=== PATIENT | male | born 1940 | race Caucasian/White ===

== ENCOUNTER 2016-10-10 12:59 | Emergency (ER) | payer OTHER, MEDICARE ==
[~2016-10-10] VITALS: Ht 182.9 cm; Wt 100.0 kg
[2016-10-10 13:04] VITALS: BP 165/107; PULSE 91; RESP 16; TEMP 98.2; O2SAT 98
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
[2016-10-10] MEDS ORDERED: ROBA500T PO (15:12)
[2016-10-10 15:40] VITALS: BP 128/81
== END 2016-10-10 15:43 | disposition home or self-care (01) ==
LOC: NEPD 12:59
DX: S16.1XXA Strain of muscle, fascia and tendon at neck level, initial encounter (principal); S00.511A Abrasion of lip, initial encounter; I67.1 Cerebral aneurysm, nonruptured; V89.2XXA Person injured in unspecified motor-vehicle accident, traffic, initial encounter
CPT/HCPCS: 70450; 71010; 72125

== ENCOUNTER 2016-12-07 15:37 | Observation (INO) | payer OTHER, MEDICARE ==
[~2016-12-07] VITALS: Ht 182.9 cm; Wt 100.0 kg
[~2016-12-07 15:37] MED LIST: ROBA500T PO
[2016-12-07] MEDS ORDERED: IOHEXOL 350 MG/ML 10 ML VIAL (for RAD DIAG) IVCONTRAST ONE (15:38)
[2016-12-07 15:41] VITALS: BP 147/72; PULSE 107; RESP 16; TEMP 98.2; O2SAT 98
--- NOTE | 2016-12-07 15:56 | PD ---
Physical Exam Date Seen by Provider: Dec 07, 2016 Time Seen by Provider: 15:55 Narrative 76 yo male here for evaluation of new onset a. fib. No history of this. Dr Cartwright sent him here for evaluation. Recent surgery and cannot be put on anticoagulation because of it. No pain. Vitals are stable in triage. Awaiting bed placement. Data Data Last Documented VS Vital Signs Date Time Temp Pulse Resp B/P (MAP) Pulse Ox O2 Delivery O2 Flow Rate FiO2 12/07/16 15:41 98.2 107 16 147/72 (97) 98 Orders Orders Electrocardiogram (12/07/16 15:43) Complete Blood Count With Diff (12/07/16 15:43) Basic Metabolic Panel (Bmp) (12/07/16 15:43) Ckmb (Isoenzyme) Profile (12/07/16 15:43) Troponin I (12/07/16 15:43) Chest, Single Ap (12/07/16 15:43) Iv Access Insert/Monitor (12/07/16 15:43) Ecg Monitoring (12/07/16 15:43) Oxygen Administration (12/07/16 15:43) Oximetry (12/07/16 15:43) Prothrombin Time / Inr (Pt) (12/07/16 15:43) MDM Medical Record Reviewed: Yes Supervised Visit with WILL: Reese Weiss Dec 07, 2016 15:56
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
[2016-12-07 16:16] VITALS: BP 160/65; PULSE 94; RESP 18; O2SAT 97
[2016-12-07] MEDS ORDERED: ASPI-110 PO (16:20)
[2016-12-07] MEDS ORDERED: PLAV75TA29 PO (16:20)
[2016-12-07 16:50] LABS: AUTOMATED NEUTROPHIL # 6.8 TH/MM3 (1.8-7.7); BASOPHIL % 0.2 % (0.0-2.0); EOSINOPHIL # 0.2 TH/MM3 (0-0.4); EOSINOPHIL % 1.9 % (0.0-4.0); HEMATOCRIT 44.8 % (39.0-51.0); HEMO FLAGS DIFF FINAL; LYMPH % 29.4 % (9.0-44.0); LYMPHOCYTE # 3.2 TH/MM3 (1.0-4.8); MEAN CELL VOLUME 91.5 FL (80.0-100.0); MEAN CORPUSCULAR HEMOGLOBIN 29.9 PG (27.0-34.0); MEAN CORPUSCULAR HGB CONC 32.6 % (32.0-36.0); MONO % 6.7 % (0.0-8.0); NEUT % 61.8 % (16.0-70.0); PLATELET COUNT 242 TH/MM3 (150-450); WHITE BLOOD COUNT 10.9 TH/MM3 (4.0-11.0)
[2016-12-07 17:00] LABS: PROTHROMBIN TIME - PATIENT 11.1 SEC (9.8-11.6)
[2016-12-07 17:05] LABS: ANION GAP 10 MEQ/L (5-15); BICARBONATE 24.1 MEQ/L (21.0-32.0); BLOOD UREA NITROGEN 26 MG/DL (7-18); CHLORIDE 110 MEQ/L (98-107); GLOMERULAR FILTRATION RATE 54 ML/MIN (>89); POTASSIUM 3.8 MEQ/L (3.5-5.1); SODIUM (NA) 144 MEQ/L (136-145)
[2016-12-07 17:08] LABS: CREATINE KINASE 208 U/L (39-308)
[2016-12-07 17:20] LABS: CKMB 8.4 NG/ML (0.5-3.6)
[2016-12-07 17:41] VITALS: BP 123/86; PULSE 83; RESP 18; O2SAT 98
--- NOTE | 2016-12-07 18:24 | PD ---
HPI Chief Complaint: Cardiac Complaint Time Seen by Provider: 16:14 Travel History International Travel<30 days: No Contact w/Intl Traveler<30days: No Traveled to known affect area: No History of Present Illness HPI This is a 76-year-old male who presents to the emergency department having an episode at home where he felt dizzy and lightheaded and short of breath. He said he took his own blood pressure and it was in the 90s systolic so he went to the [place]. At the [place] he said he was bradycardic in the 40s. He was seen by the [place] physician who noted that the patient is in atrial fibrillation which is new. The patient says that intermittently over the past several weeks he's been increasingly short of breath. He did go see his doctor 2 weeks ago and told him that he had some blood in his sputum and his doctor told him to come to the emergency department at that time he didn't. He denies any leg swelling , fevers or chills. His symptoms, and go and are worse with exertion. 4 weeks ago he had a surgery where there was an attempted coiling a basilar artery aneurysm. He is currently on Plavix and aspirin. [facility] Past Medical History Atrial Fibrillation: Yes (new onset 12/07/16) Cardiovascular Problems: Yes (stents) High Cholesterol: Yes Diminished Hearing: No Neurologic: Yes (brain aneurysm) Past Surgical History Cardiac Surgery: Yes (stents) Other Surgery: Yes (brain aneurysm ) Social History Alcohol Use: No Tobacco Use: No Substance Use: No Allergies-Medications (Allergen,Severity, Reaction): Coded Allergies: No Known Allergies (Unverified , 12/07/16) Reported Meds & Prescriptions Reported Meds & Active Scripts Active Robaxin (Methocarbamol) 500 Mg Tab 500 Mg PO TID PRN Reported Aspirin 81 (Aspirin) 81 Mg Tabdr 81 Mg PO DAILY Plavix (Clopidogrel Bisulfate) 75 Mg Tab 75 Mg PO DAILY Review of Systems Except as stated in HPI: all other systems reviewed are Neg Physical Exam Narrative GENERAL:Well appearing, no acute distress SKIN: Focused skin assessment warm and dry. HEAD: Atraumatic. Normocephalic. EYES: Pupils equal and round. No injection or drainage. ENT: Moist mucous membranes NECK: Trachea midline. CARDIOVASCULAR: Regular rate and rhythm. No murmur appreciated. RESPIRATORY: Clear to auscultation. Breath sounds equal bilaterally. GASTROINTESTINAL: Abdomen soft, non-tender, nondistended. MUSCULOSKELETAL: No obvious deformities. NEUROLOGICAL: Awake and alert. No obvious cranial nerve deficits. Moving all extremities. PSYCHIATRIC: Appropriate mood and affect; insight and judgment normal. Data Data Last Documented VS Vital Signs Date Time Temp Pulse Resp B/P (MAP) Pulse Ox O2 Delivery O2 Flow Rate FiO2 12/07/16 17:41 83 18 123/86 (98) 98 Room Air 12/07/16 15:41 98.2 Orders Orders Electrocardiogram (12/07/16 15:43) Complete Blood Count With Diff (12/07/16 15:43) Basic Metabolic Panel (Bmp) (12/07/16 15:43) Ckmb (Isoenzyme) Profile (12/07/16 15:43) Troponin I (12/07/16 15:43) Iv Access Insert/Monitor (12/07/16 15:43) Ecg Monitoring (12/07/16 15:43) Oxygen Administration (12/07/16 15:43) Oximetry (12/07/16 15:43) Prothrombin Time / Inr (Pt) (12/07/16 15:43) Chest, Pa & Lat (12/07/16 15:43) Ct Pulmonary Angiogram (12/07/16 ) CKMB (12/07/16 16:29) CKMB% (12/07/16 16:29) Act Partial Throm Time (Ptt) (12/07/16 18:18) Labs Laboratory Tests Test 12/07/16 16:29 White Blood Count 10.9 TH/MM3 Red Blood Count 4.90 MIL/MM3 Hemoglobin 14.6 GM/DL Hematocrit 44.8 % Mean Corpuscular Volume 91.5 FL Mean Corpuscular Hemoglobin 29.9 PG Mean Corpuscular Hemoglobin Concent 32.6 % Red Cell Distribution Width 14.0 % Platelet Count 242 TH/MM3 Mean Platelet Volume 8.7 FL Neutrophils (%) (Auto) 61.8 % Lymphocytes (%) (Auto) 29.4 % Monocytes (%) (Auto) 6.7 % Eosinophils (%) (Auto) 1.9 % Basophils (%) (Auto) 0.2 % Neutrophils # (Auto) 6.8 TH/MM3 Lymphocytes # (Auto) 3.2 TH/MM3 Monocytes # (Auto) 0.7 TH/MM3 Eosinophils # (Auto) 0.2 TH/MM3 Basophils # (Auto) 0.0 TH/MM3 CBC Comment DIFF FINAL Differential Comment Prothrombin Time 11.1 SEC Prothromb Time International Ratio 1.0 RATIO Blood Urea Nitrogen 26 MG/DL Creatinine 1.30 MG/DL Random Glucose 97 MG/DL Calcium Level 8.4 MG/DL Sodium Level 144 MEQ/L Potassium Level 3.8 MEQ/L Chloride Level 110 MEQ/L Carbon Dioxide Level 24.1 MEQ/L Anion Gap 10 MEQ/L Estimat Glomerular Filtration Rate 54 ML/MIN Total Creatine Kinase 208 U/L Creatine Kinase MB 8.4 NG/ML Troponin I LESS THAN 0.02 NG/ML MDM Medical Decision Making Medical Screen Exam Complete: Yes Emergency Medical Condition: Yes Interpretation(s) Tachycardic, hypertensive No leukocytosis Electrolytes are reassuring Troponin is normal INR is 1 Chest x-ray: No acute process EKG: Atrial fibrillation, right bundle branch block Differential Diagnosis Atrial fibrillation, dehydration, myocardial infarction, pulmonary embolism Narrative Course This is a 76-year-old male who presents to the emergency department having had some dizziness, lightheadedness and palpitations earlier today. He went to the [place] where he is found to be in atrial fibrillation which is a new diagnosis for him. He did have a recent neurosurgical procedure for weeks ago. He is currently on Plavix and aspirin. His CHADS-VASC score is 3. Patient was placed on a monitor and an IV was established. Labs are obtained which are reassuring. A CT pulmonary angiogram will be obtained as the patient endorse some hemoptysis one week ago, has some exertional dyspnea and had a recent surgical procedure. If the patient's PE study is reassuring I don't think the patient needs to be admitted. His rate has been controlled here in the ER with his atrial fibrillation. The big question is whether or not the patient can receive full anticoagulation. He is at risk for stroke. We plan to discuss with either our neurosurgeon or the patient's neurosurgeon whether or not the patient can be initiated on anticoagulation. If he can I would start him on Xarelto or Eliquis and have him follow-up with cardiology as an outpatient. I think patient is otherwise safe to follow-up with outpatient cardiology. Erin Cantrell MD Dec 07, 2016 18:24
[2016-12-07 19:33] LABS: APTT (PATIENT) 26.7 SEC (24.3-30.1)
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
[2016-12-07 20:30] VITALS: BP 124/75; PULSE 82; RESP 16; O2SAT 99
[2016-12-07 20:31] VITALS: BP 133/89; PULSE 87; RESP 16; O2SAT 97
--- NOTE | 2016-12-07 20:42 | RADRPT ---
EXAM DATE/TIME: 12/07/2016 19:37 [facility] COMPARISON: No previous studies available for comparison. INDICATIONS : Chest pain. IV CONTRAST: 70 cc Omnipaque 350 (iohexol) IV RADIATION DOSE: 23.38 CTDIvol (mGy) MEDICAL HISTORY : Aneurysm, intracranial. Cardiovascular disease SURGICAL HISTORY : Coronary artery stent. Aneurysm coil ENCOUNTER: Initial ACUITY: 1 day PAIN SCALE: 5/10 LOCATION: Bilateral chest TECHNIQUE: Volumetric scanning of the chest was performed using a pulmonary embolism protocol MIP images were re constructed. Using automated exposure control and adjustment of the mA and/or kV according to patien t size, radiation dose was kept as low as reasonably achievable to obtain optimal diagnostic quality images. DICOM format image data is available electronically for review and comparison. Follow-up recommendations for detected pulmonary nodules are based at a minimum on nodule size and pa tient risk factors according to Fleischner Society Guidelines. FINDINGS: No pulmonary embolus is seen. There is emphysematous change seen in the upper lungs. Calcifications are seen in the right hilum an d right tracheal bronchial region and subcarinal regions presumably from prior granulomatous exposure . There is a calcified granuloma in the medial right lower lobe. Calcified granulomas are seen in th e liver. There is a 2.3 cm hepatic mass seen at the superior lateral aspect of the right lobe of the liver. This is nonspecific. There are scattered normal sized lymph nodes seen throughout the mediastinum. Pathological enlarged adenopathy is not appreciated. Coronary artery calcifications are present. CONCLUSION: 1. No pulmonary embolus. 2. Emphysematous change in the upper lungs. 3. Evidence of prior granulomatous exposure. 4. Coronary artery calcifications. 5. Nonspecific 2.4 cm low density seen in the liver. This could be further evaluated with a CT or MR I examination of the abdomen. This could certainly be performed as an outpatient. Baldo Laughlin MD on December 07, 2016 at 20:18 Board Certified Radiologist. This report was verified electronically.
[2016-12-07] MEDS ORDERED: NALOXONE HCL 0.4 MG/ML AMP IV PRN (21:45)
[2016-12-07] MEDS ORDERED: SODIUM CHLORIDE 0.9% FLUSH 10 ML FLUSH IV FLUSH PRN (21:45)
[2016-12-07] MEDS: ENOXAPARIN SODIUM 100 MG/ML SYRINGE SQ SCH (22:12)
--- NOTE | 2016-12-07 22:13 | PD ---
Data Data Last Documented VS Vital Signs Date Time Temp Pulse Resp B/P (MAP) Pulse Ox O2 Delivery O2 Flow Rate FiO2 12/07/16 20:31 87 16 133/89 (104) 97 Room Air 12/07/16 15:41 98.2 Orders Orders Electrocardiogram (12/07/16 15:43) Complete Blood Count With Diff (12/07/16 15:43) Basic Metabolic Panel (Bmp) (12/07/16 15:43) Ckmb (Isoenzyme) Profile (12/07/16 15:43) Troponin I (12/07/16 15:43) Iv Access Insert/Monitor (12/07/16 15:43) Ecg Monitoring (12/07/16 15:43) Oxygen Administration (12/07/16 15:43) Oximetry (12/07/16 15:43) Prothrombin Time / Inr (Pt) (12/07/16 15:43) Chest, Pa & Lat (12/07/16 15:43) Ct Pulmonary Angiogram (12/07/16 ) CKMB (12/07/16 16:29) CKMB% (12/07/16 16:29) Act Partial Throm Time (Ptt) (12/07/16 18:18) Ct Brain W/O Iv Contrast(Rout) (12/07/16 ) Iohexol 350 Inj (Omnipaque 350 Inj) (12/07/16 15:38) Admit Order (Ed Use Only) (12/07/16 21:22) Labs Laboratory Tests Test 12/07/16 16:29 White Blood Count 10.9 TH/MM3 Red Blood Count 4.90 MIL/MM3 Hemoglobin 14.6 GM/DL Hematocrit 44.8 % Mean Corpuscular Volume 91.5 FL Mean Corpuscular Hemoglobin 29.9 PG Mean Corpuscular Hemoglobin Concent 32.6 % Red Cell Distribution Width 14.0 % Platelet Count 242 TH/MM3 Mean Platelet Volume 8.7 FL Neutrophils (%) (Auto) 61.8 % Lymphocytes (%) (Auto) 29.4 % Monocytes (%) (Auto) 6.7 % Eosinophils (%) (Auto) 1.9 % Basophils (%) (Auto) 0.2 % Neutrophils # (Auto) 6.8 TH/MM3 Lymphocytes # (Auto) 3.2 TH/MM3 Monocytes # (Auto) 0.7 TH/MM3 Eosinophils # (Auto) 0.2 TH/MM3 Basophils # (Auto) 0.0 TH/MM3 CBC Comment DIFF FINAL Differential Comment Prothrombin Time 11.1 SEC Prothromb Time International Ratio 1.0 RATIO Activated Partial Thromboplast Time 26.7 SEC Blood Urea Nitrogen 26 MG/DL Creatinine 1.30 MG/DL Random Glucose 97 MG/DL Calcium Level 8.4 MG/DL Sodium Level 144 MEQ/L Potassium Level 3.8 MEQ/L Chloride Level 110 MEQ/L Carbon Dioxide Level 24.1 MEQ/L Anion Gap 10 MEQ/L Estimat Glomerular Filtration Rate 54 ML/MIN Total Creatine Kinase 208 U/L Creatine Kinase MB 8.4 NG/ML Troponin I LESS THAN 0.02 NG/ML MDM Supervised Visit with WILL: No Narrative Course This case is checked out to me by Dr. Chairez at 7 PM. I have reviewed the entirety of the workup and discussed with the patient and answered his questions She had recommended hospitalization to get anticoagulated on Coumadin [facility] Patient's brain CT shows no acute bleeding His CT pulmonary and again is negative for PE I discussed with hospitalist Dr. Arredondo. She recommended 23 hour observation and will initiate Lovenox and Coumadin Diagnosis Primary Impression: New onset a-fib Admitting Information Admitting Physician Requests: Observation Flaco Adam MD Dec 07, 2016 22:13
[2016-12-07 22:14] VITALS: BP 121/69; PULSE 97; RESP 16; O2SAT 97
[2016-12-07 23:16] LABS: CREATINE KINASE 169 U/L (39-308)
[2016-12-08] VITALS (9 sets, daily range): BP systolic 116–134; BP diastolic 66–83; PULSE 70–87; RESP 14–20; TEMP 98–99.6; O2SAT 93–97
--- NOTE | 2016-12-08 02:31 | HHI.HP ---
[facility] Primary [facility] Physician [facility] Admission Diagnosis new onset Afib requiring heparin/coumadin Diagnoses: Chief Complaint: fatigue and irregular heart beat Travel History International Travel<30 Days: No Contact w/Intl Traveler <30 Da: No Traveled to Known Affected Are: No History of Present Illness Written by BRETT Forte acting as scribe for [Arnulfo] on 12/08/16 at 02: 17. 76 y/o male with a history of CAD with stent placement presented to the ED with complaints of low blood pressure. He states at home he was feeling weak and light headed for the last month, he checked his BP at home and it was 90/60. He went to the [place] and was found to be in afib and his DrTammy sent him to the ED for evaluation. One month ago he had an aneurysm coiling completed and was on hypertensive meds 2 years ago but none since. He denies any chest pain, palpitations,sob, fever or chills. After his surgery he did have black stools, but it went away on its own with no intervention. 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 Cardiac stents Cholecystectomy Reported Medications Reported Meds & Active Scripts Active Robaxin (Methocarbamol) 500 Mg Tab 500 Mg PO TID PRN Reported Aspirin 81 (Aspirin) 81 Mg Tabdr 81 Mg PO DAILY Plavix (Clopidogrel Bisulfate) 75 Mg Tab 75 Mg PO DAILY Allergies: Coded Allergies: No Known Allergies (Unverified , 12/07/16) Active Ordered Medications Current Medications Medications (Trade) Dose Ordered Sig/Andrea Route Start Time Stop Time Status Last Admin (NS Flush) 2 ml UNSCH PRN IV FLUSH 12/07/16 21:45 (NS Flush) 2 ml BID IV FLUSH 12/08/16 09:00 (Narcan Inj) 0.4 mg UNSCH PRN IV 12/07/16 21:45 (Lovenox Inj) 100 mg Q12H SQ 12/07/16 22:00 12/07/16 22:12 (Coumadin) 5 mg DAILY@1600 PO 12/08/16 16:00 Family History Brother: Lung Cancer Dad: Black lung, at 76 Social History Tobacco use: Denies Alcohol use: Quit years ago Illicit drug use: Denies Physical Exam Vital Signs Vital Signs Date Time Temp Pulse Resp B/P (MAP) Pulse Ox O2 Delivery O2 Flow Rate FiO2 12/08/16 01:36 98.1 84 18 121/76 (91) 96 12/08/16 01:04 12/08/16 00:56 83 14 116/73 (87) Room Air 12/07/16 22:14 97 16 121/69 (86) 97 Room Air 12/07/16 20:31 87 16 133/89 (104) 97 Room Air 12/07/16 17:41 83 18 123/86 (98) 98 Room Air 12/07/16 16:16 94 18 160/65 (96) 97 Room Air 12/07/16 16:16 97 Room Air 12/07/16 16:16 97 Room Air 12/07/16 15:41 98.2 107 16 147/72 (97) 98 Physical Exam GENERAL: This is a well-nourished, well-developed patient, in no apparent distress. SKIN: No rashes, ecchymoses or lesions. Cool and dry. HEAD: Atraumatic. Normocephalic. EYES: Pupils equal round and reactive. ENT: Nose without bleeding, purulent drainage or septal hematoma. Airway patent. NECK: Trachea midline. No JVD or lymphadenopathy. CARDIOVASCULAR: Regular rate and irregular rhythm without murmurs, gallops, or rubs. RESPIRATORY: Clear to auscultation. Breath sounds equal bilaterally. No wheezes , rales, or rhonchi. GASTROINTESTINAL: Abdomen soft, non-tender, nondistended. MUSCULOSKELETAL: Extremities without clubbing, cyanosis, or edema. No joint tenderness, effusion, or edema noted. No calf tenderness. NEUROLOGICAL: Awake and alert. Motor and sensory grossly within normal limits. Normal speech. Laboratory Laboratory Tests Test 12/07/16 16:29 12/07/16 22:30 White Blood Count 10.9 Red Blood Count 4.90 Hemoglobin 14.6 Hematocrit 44.8 Mean Corpuscular Volume 91.5 Mean Corpuscular Hemoglobin 29.9 Mean Corpuscular Hemoglobin Concent 32.6 Red Cell Distribution Width 14.0 Platelet Count 242 Mean Platelet Volume 8.7 Neutrophils (%) (Auto) 61.8 Lymphocytes (%) (Auto) 29.4 Monocytes (%) (Auto) 6.7 Eosinophils (%) (Auto) 1.9 Basophils (%) (Auto) 0.2 Neutrophils # (Auto) 6.8 Lymphocytes # (Auto) 3.2 Monocytes # (Auto) 0.7 Eosinophils # (Auto) 0.2 Basophils # (Auto) 0.0 CBC Comment DIFF FINAL Differential Comment Prothrombin Time 11.1 Prothromb Time International Ratio 1.0 Activated Partial Thromboplast Time 26.7 Blood Urea Nitrogen 26 Creatinine 1.30 Random Glucose 97 Calcium Level 8.4 Sodium Level 144 Potassium Level 3.8 Chloride Level 110 Carbon Dioxide Level 24.1 Anion Gap 10 Estimat Glomerular Filtration Rate 54 Total Creatine Kinase 208 169 Creatine Kinase MB 8.4 Troponin I LESS THAN 0.02 LESS THAN 0.02 Result Diagram: 12/07/16 1629 12/07/16 1629 Imaging Last Impressions Chest X-Ray 12/07/16 1543 Signed Impressions: Service Date/Time: Wednesday, December 07, 2016 15:58 - CONCLUSION: No acute disease. Harry Hickey Jr., MD Head CT 12/07/16 0000 Signed Impressions: Service Date/Time: Wednesday, December 07, 2016 19:33 - CONCLUSION: 1. 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 2. An acute abnormality is not clearly seen. There is streak artifact from the coils. 3. Left maxillary and sphenoid sinus disease. Baldo Laughlin MD CT Angiography 12/07/16 0000 Signed Impressions: Service Date/Time: Wednesday, December 07, 2016 19:37 - CONCLUSION: 1. No pulmonary embolus. 2. Emphysematous change in the upper lungs. 3. Evidence of prior granulomatous exposure. 4. Coronary artery calcifications. 5. Nonspecific 2.4 cm low density seen in the liver. This could be further evaluated with a CT or MRI examination of the abdomen. This could certainly be performed as an outpatient. Baldo Laughlin MD [place] VTE Risk Assessment Caprini VTE Risk Assessment: Mod/High Risk (score >= 2) Caprini Risk Assessment Model Point Value = 1 Point Value = 2 Point Value = 3 Point Value = 5 Age 41-60 Minor surgery BMI > 25 kg/m2 Swollen legs Varicose veins or History of unexplained or recurrent spontaneous Oral contraceptives or hormone replacement Sepsis (< 1 month) Serious lung disease, including pneumonia (< 1 month) Abnormal pulmonary function Acute myocardial infarction Congestive heart failure (< 1 month) History of inflammatory bowel disease Medical patient at bed rest Age 61-74 Arthroscopic surgery Major open surgery (> 45 min) Laparoscopic surgery (> 45 min) Malignancy Confined to bed (> 72 hours) Immobilizing plaster cast Central venous access Age >= 75 History of VTE Family history of VTE Factor V Leiden Prothrombin [id number] Lupus anticoagulant Anticardiolipin antibodies Elevated serum homocysteine Heparin-induced thrombocytopenia Other congenital or acquired thrombophilia Stroke (< 1 month) Elective arthroplasty Hip, pelvis, or leg fracture Acute spinal cord injury (< 1 month) Prophylaxis Regimen Total Risk Factor Score Risk Level Prophylaxis Regimen 0-1 Low Early ambulation 2 Moderate Order ONE of the following: *Sequential Compression Device (SCD) *Heparin 5000 units SQ BID 3-4 Higher Order ONE of the following medications: *Heparin 5000 units SQ TID *Enoxaparin/Lovenox 40 mg SQ daily (WT < 150 kg, CrCl > 30 mL/min) *Enoxaparin/Lovenox 30 mg SQ daily (WT < 150 kg, CrCl > 10-29 mL/min) *Enoxaparin/Lovenox 30 mg SQ BID (WT < 150 kg, CrCl > 30 mL/min) AND/OR *Sequential Compression Device (SCD) 5 or more Highest Order ONE of the following medications: *Heparin 5000 units SQ TID (Preferred with Epidurals) *Enoxaparin/Lovenox 40 mg SQ daily (WT < 150 kg, CrCl > 30 mL/min) *Enoxaparin/Lovenox 30 mg SQ daily (WT < 150 kg, CrCl > 10-29 mL/min) *Enoxaparin/Lovenox 30 mg SQ BID (WT < 150 kg, CrCl > 30 mL/min) AND *Sequential Compression Device (SCD) Assessment and Plan Problem List: (1) New onset a-fib ICD Code: I48.91 - Unspecified atrial fibrillation Status: Acute (2) Brain aneurysm ICD Code: I67.1 - Cerebral aneurysm, nonruptured Status: Chronic Assessment and Plan 76 y/o male with a history of CAD with stent placement presented to the ED with complaints of low blood pressure. New onset afib EKG reviewed and shows afib, troponin .02 -Start Coumadin and Lovenox bridge -2D echo -INR in AM -Serial troponin and EKGs Brain aneurysm, chronic Head CT reviewed and shows aneurysm coiling and no acute hemorrhage -Neurosurgeon was called by ED doctor and he agreed with starting anticoagulation -Patient will continue to follow out patient with his neurosurgeon at the [place] DVT prophylaxis: Lovenox This note was transcribed by fermín [Lizet Malcolm]. I, Dr. Mendez Arredondo personally performed the history, physical exam, and medical decision making; and confirmed the accuracy of the information in the transcribed note. Authenticated by Dr. Mendez Arredondo on 12/08/16 at 02:17. Discussed Condition With Patient and ED physician Lizet Malcolm Dec 08, 2016 02:31 Mendez Arredondo MD Dec 08, 2016 07:17
[2016-12-08 05:45] LABS: ANION GAP 8 MEQ/L (5-15); BICARBONATE 24.9 MEQ/L (21.0-32.0); BLOOD UREA NITROGEN 23 MG/DL (7-18); CHLORIDE 110 MEQ/L (98-107); GLOMERULAR FILTRATION RATE 68 ML/MIN (>89); POTASSIUM 3.8 MEQ/L (3.5-5.1); SODIUM (NA) 143 MEQ/L (136-145)
[2016-12-08 05:50] LABS: CREATINE KINASE 140 U/L (39-308)
[2016-12-08 08:25] LABS: BASOPHIL % 0.3 % (0.0-2.0); EOSINOPHIL # 0.1 TH/MM3 (0-0.4); HEMO FLAGS DIFF FINAL; LYMPH % 34.3 % (9.0-44.0); LYMPHOCYTE # 2.5 TH/MM3 (1.0-4.8); MEAN CORPUSCULAR HEMOGLOBIN 30.3 PG (27.0-34.0); MEAN CORPUSCULAR HGB CONC 33.4 % (32.0-36.0); MONO % 7.3 % (0.0-8.0); NEUT % 56.1 % (16.0-70.0); PLATELET COUNT 170 TH/MM3 (150-450); RED BLOOD COUNT 3.85 MIL/MM3 (4.50-5.90); WHITE BLOOD COUNT 7.2 TH/MM3 (4.0-11.0)
[2016-12-08] MEDS: SODIUM CHLORIDE 0.9% FLUSH 10 ML FLUSH IV FLUSH SCH ×2 (09:17→20:22)
[2016-12-08] MEDS: ENOXAPARIN SODIUM 100 MG/ML SYRINGE SQ SCH ×2 (10:41→20:23)
--- NOTE | 2016-12-08 11:48 | HHI.PR ---
Subjective Remarks Follow-up for new onset atrial fibrillation. Patient had recent aneurysm coiling at in [facility]. He states that for the past 2 or 3 weeks he's been having episodes of extreme fatigue. These episodes are worse with exertion. He denies any chest pain, palpitations, or shortness of breath. He did have a coronary stent placed 7 years ago, and states that his only symptoms prior to that was fatigue. He doesn't recall having a stress test specifically, but does think he might have had cardiac testing done before his aneurysm coil. He states that yesterday he was feeling fatigued and checked his blood pressure and it was 90/64. He went to the [place] and they checked his blood pressure and states that his heart rate was 55 on the automatic blood pressure machine. He did not have a manual heart rate checked.. He does not follow with a roustabout head. The patient has been feeling well today with no symptoms. Telemetry today showed episodes of A. fib with RVR. Objective Vitals Vital Signs Date Time Temp Pulse Resp B/P (MAP) Pulse Ox O2 Delivery O2 Flow Rate FiO2 12/08/16 11:03 98.0 76 16 127/81 (96) 96 12/08/16 08:18 98.1 78 18 134/69 (90) 97 12/08/16 03:23 98.6 70 18 128/83 (98) 93 12/08/16 01:36 98.1 84 18 121/76 (91) 96 12/08/16 01:04 12/08/16 00:56 83 14 116/73 (87) Room Air 12/07/16 22:14 97 16 121/69 (86) 97 Room Air 12/07/16 20:31 87 16 133/89 (104) 97 Room Air 12/07/16 17:41 83 18 123/86 (98) 98 Room Air 12/07/16 16:16 94 18 160/65 (96) 97 Room Air 12/07/16 16:16 97 Room Air 12/07/16 16:16 97 Room Air 12/07/16 15:41 98.2 107 16 147/72 (97) 98 Result Diagram: 12/08/16 0735 12/08/16 0500 Imaging Last Impressions Chest X-Ray 12/07/16 8224 Signed Impressions: Service Date/Time: Wednesday, December 07, 2016 15:58 - CONCLUSION: No acute disease. Harry Hickey Jr., MD Head CT 12/07/16 0000 Signed Impressions: Service Date/Time: Wednesday, December 07, 2016 19:33 - CONCLUSION: 1. 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 2. An acute abnormality is not clearly seen. There is streak artifact from the coils. 3. Left maxillary and sphenoid sinus disease. Baldo Laughlin MD CT Angiography 12/07/16 0000 Signed Impressions: Service Date/Time: Wednesday, December 07, 2016 19:37 - CONCLUSION: 1. No pulmonary embolus. 2. Emphysematous change in the upper lungs. 3. Evidence of prior granulomatous exposure. 4. Coronary artery calcifications. 5. Nonspecific 2.4 cm low density seen in the liver. This could be further evaluated with a CT or MRI examination of the abdomen. This could certainly be performed as an outpatient. Baldo Laughlin MD Objective Remarks GENERAL: Well-developed well-nourished. In no acute distress. SKIN: Warm and dry. No lesions noted. HEENT: Normocephalic. Pupils equal and round. Mucous membranes pink and moist. CARDIOVASCULAR: Irregular rate and rhythm. No murmur appreciated. RESPIRATORY: No accessory muscle use. Clear to auscultation. Breath sounds equal bilaterally. GASTROINTESTINAL: Abdomen soft, non-tender, nondistended. Bowel sounds x4. MUSCULOSKELETAL: No obvious deformities. No clubbing or cyanosis. No edema. NEUROLOGICAL: Awake and alert. No focal neurological deficits. Moves upper and lower extremities spontaneously. Normal speech. PSYCHIATRIC: Appropriate mood and affect; insight and judgment normal. A/P Problem List: (1) New onset a-fib ICD Code: I48.91 - Unspecified atrial fibrillation Status: Acute (2) Brain aneurysm ICD Code: I67.1 - Cerebral aneurysm, nonruptured Status: Chronic Assessment and Plan 76 y/o male with a history of CAD with stent placement presented to the ED with complaints of low blood pressure. New onset afib: CHADSVASC 3 due to age and hypertension. Reviewed: EKG shows afib with rate in 80s. Troponin 0.023. TSH within normal limits. Telemetry monitoring shows episodes of A. fib with RVR rate up to 160s today, currently controlled. Pulmonary angiogram with no PE. -Start Coumadin and Lovenox bridge. Hold aspirin and Plavix. -2D echo -INR in AM -Start metoprolol for rate control -Consult cardiology -Obtain records of possible recent cardiac workup Brain aneurysm, chronic Head CT reviewed and shows aneurysm coiling and no acute hemorrhage -ED physician discussed patient's case with patient's neurosurgeon who recommended starting on Coumadin in case it needs to be reversed -Patient will continue to follow out patient with his neurosurgeon at the [place] Liver nodule: Incidentally seen on chest CT. -Recommendation for outpatient MRI DVT prophylaxis: Lovenox/Coumadin Discharge Planning Monitor on telemetry. Follow up cardiology recommendations. Gutierrez He Dec 08, 2016 11:48
[2016-12-08] MEDS: METOPROLOL TARTRATE 25 MG TAB PO SCH ×2 (13:14→20:22)
[2016-12-08] MEDS ORDERED: WARFARIN SOD 5 MG TAB PO SCH (16:00)
--- NOTE | 2016-12-08 16:22 | ECHRPT ---
Indication: ATRIAL FIB/FLUTTER CONCLUSIONS Normal left ventricular size. Mild concentric left ventricular hypertrophy. The left ventricular systolic function is normal with an estimated ejection fraction in the range of 55-60%. This study was not technically sufficient to allow for evaluation of left ventricular diastolic func tion. The interatrial septum not well visualized. The aortic root and proximal ascending aorta are not well visualized. Trace mitral valve regurgitation. No aortic valve regurgitation. No aortic valve stenosis. There is trace tricuspid valve regurgitation. Normal estimated pulmonary pressures. The pulmonary valve is not well visualized. The inferior vena cava (IVC) is normal in size. There is greater than 50% respiratory change in dimension of the inferior vena cava (normal). BP: 128 / 83 HR: 126 Rhythm: Atrial fibrillation, Atrial flut ter MEASUREMENTS (Male / Female) Normal Values Technical Quality:Poor 2D ECHO LV Diastolic Diameter PLAX 5.3 cm 4.2 - 5.9 / 3.9 - 5.3 cm LV Systolic Diameter PLAX 4.0 cm IVS Diastolic Thickness 1.2 cm 0.6 - 1.0 / 0.6 - 0.9 cm LVPW Diastolic Thickness 1.2 cm 0.6 - 1.0 / 0.6 - 0.9 cm LV Relative Wall Thickness 0.4 LVOT Diameter 2.3 cm Aortic Root Diameter 3.8 cm LA Systolic Diameter LX 3.7 cm 3.0 - 4.0 / 2.7 - 3.8 cm M-MODE AV Cusp Separation MM 1.9 cm DOPPLER AV Peak Velocity 97.6 cm/s AV Peak Gradient 3.8 mmHg AV Mean Gradient 2.3 mmHg AV Velocity Time Integral 14.4 cm LVOT Peak Velocity 60.5 cm/s LVOT Peak Gradient 1.5 mmHg LVOT Velocity Time Integral 8.2 cm LVOT Cardiac Index 1890.7 cm/minm AV Area Cont Eq vti 2.4 cm AV Area Cont Eq pk 2.6 cm Mitral E Point Velocity 66.9 cm/s LV E' Lateral Velocity 15.0 cm/s Mitral E to LV E' Lateral Ratio 4.5 LV E' Septal Velocity 8.3 cm/s Mitral E to LV E' Septal Ratio 8.0 TR Peak Velocity 270.0 cm/s TR Peak Gradient 29.2 mmHg PV Peak Velocity 79.7 cm/s PV Peak Gradient 2.5 mmHg FINDINGS LEFT VENTRICLE Normal left ventricular size. Mild concentric left ventricular hypertrophy. The left ventricular systolic function is normal with an estimated ejection fraction in the range of 55-60%. This study was not technically sufficient to allow for evaluation of left ventricular diastolic func tion. RIGHT VENTRICLE Normal right ventricular size and systolic function. LEFT ATRIUM The left atrial size is normal. RIGHT ATRIUM The right atrial size is normal. ATRIAL SEPTUM The interatrial septum not well visualized. AORTA The aortic root and proximal ascending aorta are not well visualized. MITRAL VALVE Structurally normal mitral valve. Trace mitral valve regurgitation. AORTIC VALVE No aortic valve regurgitation. Trileaflet aortic valve. No aortic valve stenosis. TRICUSPID VALVE Structurally normal tricuspid valve. There is trace tricuspid valve regurgitation. Normal estimated pulmonary pressures. PULMONARY VALVE The pulmonary valve is not well visualized. VESSELS The inferior vena cava (IVC) is normal in size. There is greater than 50% respiratory change in dimension of the inferior vena cava (normal). PERICARDIUM No pericardial effusion. Last Chowdhury MD, FACC (Electronically Signed) Final Date:08 December 2016 16:21
--- NOTE | 2016-12-08 17:39 | EKG ---
Date Performed: 12/07/2016 Time Performed: 15:47:50 PTAGE: 76 years EKG: ATRIAL FIBRILLATION INDETERMINATE AXIS RIGHT BUNDLE BRANCH BLOCK ABNORMAL ECG NO PREVIOUS TRACING DOCTOR: Michael Lockhart Interpretating Date/Time 12/08/2016 17:35:36
--- NOTE | 2016-12-08 17:48 | EKG ---
Date Performed: 12/07/2016 Time Performed: 22:40:21 PTAGE: 76 years EKG: ATRIAL FIBRILLATION MARKED LEFT AXIS DEVIATION RIGHT BUNDLE BRANCH BLOCK ABNORMAL ECG Magnus red to prior tracing no significant change PREVIOUS TRACING : 12/07/2016 15.47 DOCTOR: Michael Lockhart Interpretating Date/Time 12/12/2016 13:54:11
--- NOTE | 2016-12-08 18:05 | EKG ---
Date Performed: 12/08/2016 Time Performed: 05:28:40 PTAGE: 76 years EKG: ATRIAL FIBRILLATION MARKED LEFT AXIS DEVIATION RIGHT BUNDLE BRANCH BLOCK ABNORMAL ECG Magnus red to prior tracing no significant change PREVIOUS TRACING : 12/07/2016 10.40.21 DOCTOR: Michael Lockhart Interpretating Date/Time 12/08/2016 18:04:04
[2016-12-09] VITALS (7 sets, daily range): BP systolic 120–151; BP diastolic 69–99; PULSE 58–78; RESP 16–18; TEMP 97.6–98.6; O2SAT 94–97
--- NOTE | 2016-12-09 08:27 | HHI.PR ---
Subjective Remarks Follow-up for new-onset atrial fibrillation. The patient states that he feels much better today. He denies any further fatigue. No chest pain or shortness of breath. We have not yet obtained the records of possible recent cardiac testing. The patient is agreeable to proceed with stress testing. Heart rate is better controlled. He states his feels comfortable giving him Lovenox shots at home. Objective Vitals Vital Signs Date Time Temp Pulse Resp B/P (MAP) Pulse Ox O2 Delivery O2 Flow Rate FiO2 12/09/16 04:57 97.9 68 17 130/99 (109) 97 12/09/16 04:00 66 12/09/16 00:17 98.6 75 16 120/69 (86) 97 12/09/16 00:01 78 12/08/16 21:19 99.6 87 20 134/66 (88) 96 12/08/16 20:01 78 12/08/16 15:22 98.0 78 16 124/80 (95) 96 12/08/16 12:12 85 12/08/16 11:03 98.0 76 16 127/81 (96) 96 Result Diagram: 12/08/16 0735 12/08/16 0500 Imaging Last Impressions Chest X-Ray 12/07/16 1543 Signed Impressions: Service Date/Time: Wednesday, December 07, 2016 15:58 - CONCLUSION: No acute disease. Harry Hickey Jr., MD Head CT 12/07/16 0000 Signed Impressions: Service Date/Time: Wednesday, December 07, 2016 19:33 - CONCLUSION: 1. 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 2. An acute abnormality is not clearly seen. There is streak artifact from the coils. 3. Left maxillary and sphenoid sinus disease. Baldo Laughlin MD CT Angiography 12/07/16 0000 Signed Impressions: Service Date/Time: Wednesday, December 07, 2016 19:37 - CONCLUSION: 1. No pulmonary embolus. 2. Emphysematous change in the upper lungs. 3. Evidence of prior granulomatous exposure. 4. Coronary artery calcifications. 5. Nonspecific 2.4 cm low density seen in the liver. This could be further evaluated with a CT or MRI examination of the abdomen. This could certainly be performed as an outpatient. Baldo Laughlin MD Objective Remarks GENERAL: Well-developed well-nourished. In no acute distress. SKIN: Warm and dry. No lesions noted. HEENT: Normocephalic. Pupils equal and round. Mucous membranes pink and moist. CARDIOVASCULAR: Irregular rate and rhythm. No murmur appreciated. RESPIRATORY: No accessory muscle use. Clear to auscultation. Breath sounds equal bilaterally. GASTROINTESTINAL: Abdomen soft, non-tender, nondistended. Bowel sounds x4. MUSCULOSKELETAL: No obvious deformities. No clubbing or cyanosis. No edema. NEUROLOGICAL: Awake and alert. No focal neurological deficits. Moves upper and lower extremities spontaneously. Normal speech. PSYCHIATRIC: Appropriate mood and affect; insight and judgment normal. A/P Problem List: (1) New onset a-fib ICD Code: I48.91 - Unspecified atrial fibrillation Status: Acute (2) Brain aneurysm ICD Code: I67.1 - Cerebral aneurysm, nonruptured Status: Chronic Assessment and Plan 76 y/o male with a history of CAD with stent placement presented to the ED with complaints of low blood pressure. New onset afib: CHADSVASC 3 due to age and hypertension. Reviewed: EKG shows afib with rate in 80s. Troponin 0.023. TSH within normal limits. Telemetry monitoring shows no further RVR overnight after starting metoprolol. Pulmonary angiogram with no PE. Echocardiogram essentially within normal limits. -Started Coumadin and Lovenox bridge. Hold aspirin and Plavix. Monitor INR. His management consult for [facility] for INR monitoring and Lovenox administration. -Started metoprolol for rate control -Consulted cardiology, will proceed with ischemic workup Brain aneurysm, chronic Head CT reviewed and shows aneurysm coiling and no acute hemorrhage -ED physician discussed patient's case with patient's neurosurgeon who recommended starting on Coumadin in case it needs to be reversed -Patient will continue to follow out patient with his neurosurgeon at the [place] Liver nodule: Incidentally seen on chest CT, results discussed with patient. -Recommendation for outpatient MRI DVT prophylaxis: Lovenox/Coumadin Discharge Planning Follow-up results of stress testing today and cardiology recommendations. 1530 stress test was unable to exclude "small size mild severity" ischemic defect in the apex. Discussed results with cardiology, Dr. Chowdhury, patient cleared for discharge and outpatient follow-up. Case management has arranged [facility] for continued INR monitoring and Lovenox administration. Discharge home today for outpatient PCP and cardiology follow-up. Gutierrez He Dec 09, 2016 08:27
--- NOTE | 2016-12-09 08:34 | PD.CARD.PN ---
Subjective Subjective Remarks no events Objective Medications Active Medications Metoprolol Tartrate (Lopressor) 25 mg Q12HR PO Last administered on 12/08/16 20 :22; Admin Dose 25 MG; Start 12/08/16 at 14:00 Sodium Chloride (NS Flush) 2 ml BID IV FLUSH Last administered on 12/08/16 20: 22; Admin Dose 2 ML; Start 12/08/16 at 09:00 Warfarin Sodium (Coumadin) 5 mg DAILY@1600 PO Last administered on 12/08/16 16: 54; Admin Dose 5 MG; Start 12/08/16 at 16:00 Vital Signs / I&O Vital Signs Date Time Temp Pulse Resp B/P (MAP) Pulse Ox O2 Delivery O2 Flow Rate FiO2 12/09/16 04:57 97.9 68 17 130/99 (109) 97 12/09/16 04:00 66 12/09/16 00:17 98.6 75 16 120/69 (86) 97 12/09/16 00:01 78 12/08/16 21:19 99.6 87 20 134/66 (88) 96 12/08/16 20:01 78 12/08/16 15:22 98.0 78 16 124/80 (95) 96 12/08/16 12:12 85 12/08/16 11:03 98.0 76 16 127/81 (96) 96 Physical Exam GENERAL: SKIN: Warm and dry. HEAD: Normocephalic. EYES: No scleral icterus. No injection or drainage. NECK: Supple, trachea midline. No JVD or lymphadenopathy. CARDIOVASCULAR: IR IR RESPIRATORY: Breath sounds equal bilaterally. No accessory muscle use. GASTROINTESTINAL: Abdomen soft, non-tender, nondistended. MUSCULOSKELETAL: No cyanosis, or edema. BACK: Nontender without obvious deformity. No CVA tenderness. Laboratory Last Impressions Chest X-Ray 12/07/16 1543 Signed Impressions: Service Date/Time: Wednesday, December 07, 2016 15:58 - CONCLUSION: No acute disease. Harry Hickey Jr., MD Head CT 12/07/16 0000 Signed Impressions: Service Date/Time: Wednesday, December 07, 2016 19:33 - CONCLUSION: 1. 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 2. An acute abnormality is not clearly seen. There is streak artifact from the coils. 3. Left maxillary and sphenoid sinus disease. Baldo Laughlin MD CT Angiography 12/07/16 0000 Signed Impressions: Service Date/Time: Wednesday, December 07, 2016 19:37 - CONCLUSION: 1. No pulmonary embolus. 2. Emphysematous change in the upper lungs. 3. Evidence of prior granulomatous exposure. 4. Coronary artery calcifications. 5. Nonspecific 2.4 cm low density seen in the liver. This could be further evaluated with a CT or MRI examination of the abdomen. This could certainly be performed as an outpatient. Baldo Laughlin MD Assessment and Plan Assessment and Plan afib- rate control. anticoagulation. stress test this am. if negative DC home FU PCP Last Chowdhury MD Dec 09, 2016 08:34
[2016-12-09 09:04] LABS: AUTOMATED NEUTROPHIL # 4.6 TH/MM3 (1.8-7.7); BASOPHIL % 0.3 % (0.0-2.0); EOSINOPHIL # 0.2 TH/MM3 (0-0.4); EOSINOPHIL % 2.1 % (0.0-4.0); HEMATOCRIT 40.7 % (39.0-51.0); HEMO FLAGS DIFF FINAL; LYMPHOCYTE # 3.3 TH/MM3 (1.0-4.8); MEAN CORPUSCULAR HEMOGLOBIN 30.3 PG (27.0-34.0); MEAN CORPUSCULAR HGB CONC 33.3 % (32.0-36.0); MONO % 5.8 % (0.0-8.0); NEUT % 53.8 % (16.0-70.0); PLATELET COUNT 206 TH/MM3 (150-450); RED BLOOD COUNT 4.47 MIL/MM3 (4.50-5.90); RED CELL DISTRIBUTION WIDTH 13.7 % (11.6-17.2); WHITE BLOOD COUNT 8.6 TH/MM3 (4.0-11.0)
[2016-12-09 09:10] LABS: INTERNATIONAL NORMALIZED RATIO 1.1 RATIO; PROTHROMBIN TIME - PATIENT 11.9 SEC (9.8-11.6)
--- NOTE | 2016-12-09 09:19 | HHI.FF ---
Face to Face Verification Diagnosis: (1) Brain aneurysm (2) New onset a-fib Home Health Nursing Order: Medical education Signs/symptoms of disease process Medication education-adverse effect Nursing assessment with vital signs IV medication administration Instructions: Daily INR monitoring until therapeutic. Assistance with Lovenox administration. I have seen patient Bry Brush on 12/09/16. My clinical findings support the need for the requested home health care services because: Patient has SOB Injectable med education/admin I certify that my clinical findings support that this patient is homebound because: Post-op weakness Poor cardiac reserve Gutierrez He Dec 09, 2016 09:19
[2016-12-09 09:26] LABS: BICARBONATE 25.4 MEQ/L (21.0-32.0); MAGNESIUM 2.5 MG/DL (1.5-2.5); POTASSIUM 3.7 MEQ/L (3.5-5.1)
[2016-12-09] MEDS ORDERED: REGADENOSON INJ 0.4 MG/5 ML SYR ONE (11:00)
[2016-12-09] MEDS: SODIUM CHLORIDE 0.9% FLUSH 10 ML FLUSH IV FLUSH SCH (12:17)
[2016-12-09] MEDS: METOPROLOL TARTRATE 25 MG TAB PO SCH (12:17)
--- NOTE | 2016-12-09 12:39 | RADRPT ---
EXAM DATE/TIME: 12/09/2016 10:22 [facility] COMPARISON: No previous studies available for comparison. INDICATIONS : Episodes of extreme fatigue for 2-3 weeks. Atrial fibrillation. DOSE: 30.7 mCi Tc99m Myoview at stress. 10.2 mCi Tc99m Myoview at rest. 0.4 mg Lexiscan STRESS SYMPTOMS: Dyspnea and nausea. EJECTION FRACTION: 47% MEDICAL HISTORY : Hypercholesterolemia. SURGICAL HISTORY : Coronary artery stent. ENCOUNTER: Initial ACUITY: 3 weeks PAIN SCALE: 0/10 LOCATION: chest TECHNIQUE: The patient underwent pharmacologic stress with infusion of prescribed dose. Continuous ECG tracing was monitored during stress. Gated SPECT imaging was performed after stress and conventional SPECT i maging was performed at rest. The examination was performed on a SPECT/CT scanner, both attenuation and non-corrected datasets were reviewed. FINDINGS: DISTRIBUTION: The maximum perfused segment at stress is in the anterolateral wall. PERFUSION STUDY: There is a small size mild severity reversible defect directly at the apex with intact wall motion. GATED STUDY: There is intact wall motion and thickening without hypokinetic or dyskinetic segments. CONCLUSION: Small size mild severity reversible defect directly at the apex. Ischemia is not excluded. RISK CATEGORY: Low (<1% Annual Mortality Rate) Zelalem Lyons MD on December 09, 2016 at 12:36 Board Certified Radiologist. This report was verified electronically.
[2016-12-09] MEDS: ENOXAPARIN SODIUM 100 MG/ML SYRINGE SQ SCH (12:56)
--- NOTE | 2016-12-09 13:06 | MB ---
cc: NATALIO PALMER DATE OF CONSULTATION 12/08/16 REASON FOR CONSULTATION Atrial fibrillation. HISTORY OF PRESENT ILLNESS This is a 76 year old gentleman who came into the emergency department with lightheadedness, dizziness, shortness of breath. [facility]. [facility] doc noted that the patient was in atrial fibrillation and sent him over. He saw doctor about two weeks ago for some coughing. 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 Denies any history of arrhythmias. Has history of prior coronary artery disease with percutaneous intervention about seven years ago. PAST MEDICAL HISTORY 1. Atrial fibrillation, new onset. 2. Coronary artery disease, prior percutaneous intervention 3. Hyperlipidemia 4. Brain aneurysm status post coil embolization. SOCIAL HISTORY Denies alcohol, tobacco or drug use. FAMILY HISTORY Denies any family history of early coronary artery disease or sudden cardiac . ALLERGIES NO KNOWN DRUG ALLERGIES MEDICATIONS 1. Aspirin 2. Plavix REVIEW OF SYSTEMS 12 point review of systems was performed, negative unless otherwise noted in History of Present Illness PHYSICAL EXAMINATION VITAL SIGNS: Temperature 98, pulse 76, blood pressure 127/81 mmHg. GENERAL: Alert and oriented times three in no acute distress. HEENT: Pupils reactive to light and accommodation. Extraocular movements are intact. NECK: No elevation in jugular venous distention. No thyromegaly, no lymphadenopathy, no carotid bruits. LUNGS: Clear to auscultation bilaterally. CARDIOVASCULAR: Regular without murmurs, rubs or gallops. ABDOMEN: Nontender, nondistended. Good bowel sounds. No hepatosplenomegaly. EXTREMITIES: No cyanosis, clubbing or edema. Good peripheral pulses. NEUROLOGIC: Cranial nerves intact. Motor sensory grossly intact. LABORATORY DATA WBC 7.2, hemoglobin 11.7, platelet count 170. INR 1. Sodium 143, potassium 3.8, BUN 23, creatinine 1.03. Troponin negative times three. CARDIOLOGY STUDIES Electrocardiogram from 12/08/16 - atrial fibrillation, poor R-wave progression, right bundle branch block, nonspecific ST-T wave changes. ASSESSMENT 1. Atrial fibrillation 2. Abnormal electrocardiogram 3. Basal aneurysm status post coil embolization PLAN This is new onset atrial fibrillation according to the records. The patient is rate controlled now. telemetry has some baseline artifact but I think he is in atrial flutter with 3:1 block. We will repeat an electrocardiogram to better evaluate. The patient is going to be initiated on anticoagulation. He has a history of coronary artery disease so baby aspirin would be okay in addition to the anticoagulant. Electrocardiogram shows right bundle branch block. There is some nonspecific ST changes. Would recommend that we get an echocardiogram to look for any valvular heart disease. May also consider a stress test if has not had an outpatient workup prior to the coil embolization. MD JESS Garcia/ /12:57 PM /12:55 PM [facility]
[2016-12-09] MEDS ORDERED: COUM5TAB PO (13:25)
[2016-12-09] MEDS ORDERED: METO25TA3 PO (13:25)
[2016-12-09] MEDS ORDERED: ENOX100P SQ (13:25)
== END 2016-12-09 15:16 | disposition home or self-care (01) ==
LOC: NEPC 15:37 → INTOOBSV 21:24 → NEDA 21:24 → NEPGCP 12-08 01:09
PROVIDERS: ADMIT Family Medicine; ATTEND Family Medicine
DX: I48.91 Unspecified atrial fibrillation (principal); I67.1 Cerebral aneurysm, nonruptured; R06.02 Shortness of breath; R42 Dizziness and giddiness; R00.1 Bradycardia, unspecified; K76.89 Other specified diseases of liver; I95.9 Hypotension, unspecified; I25.10 Atherosclerotic heart disease of native coronary artery without angina pectoris; E78.5 Hyperlipidemia, unspecified; I48.92 Unspecified atrial flutter; R11.0 Nausea; E78.00 Pure hypercholesterolemia, unspecified; Z95.5 Presence of coronary angioplasty implant and graft
CPT/HCPCS: 70450; 71020; 71275; 78452; 80048; 82550; 82552; 83735; 84443; 84484; 85025; 85610; 85730; 93005; 93017; 93306; 96372; 99285; A9502; G0378; J1650; J2785; Q9967